=== PATIENT | female | born 1990 | race African-American/Black ===

== ENCOUNTER → 2019-06-07 | Outpatient (CLI) | payer MEDICARE, MEDICAID ==
--- NOTE | 2019-06-07 09:47 | EKG REPORT ---
SEVERITY:- OTHERWISE NORMAL ECG - SINUS ARRHYTHMIA, RATE 52-78 : Confirmed by: Galdino Carmichael 07-Jun-2019 09:46:35
[2019-06-07 09:51] LABS: ABSOLUTE LYMPHOCYTES (AUTO) 1.2 10^3/uL (0.5-4.7); ABSOLUTE MONOCYTES (AUTO) 0.6 10^3/uL (0.1-1.4); ABSOLUTE NEUT (AUTO) 8.6 10^3/uL (1.7-8.2); BASOPHILS % (AUTO) 0.3 % (0-2); HEMATOCRIT 31.4 % (36.0-47.0); HEMOGLOBIN 10.3 g/dL (12.0-15.5); LYMPHOCYTES % (AUTO) 11.7 % (13-45); MEAN CORPUSCULAR HEMOGLOBIN 24.9 pg (27.0-33.4); MEAN CORPUSCULAR HGB CONC 32.9 g/dL (32.0-36.0); MEAN CORPUSCULAR VOLUME 76 fl (80-97); PLATELET COUNT 376 10^3/uL (150-450); RED BLOOD COUNT 4.15 10^6/uL (3.72-5.28); RED CELL DISTRIBUTION WIDTH 15.3 % (11.5-14.0); TOTAL CELLS COUNTED % (AUTO) 100 %; WHITE BLOOD COUNT 10.4 10^3/uL (4.0-10.5)
[2019-06-07 10:18] LABS: ALBUMIN 4.6 g/dL (3.5-5.0); ALKALINE PHOSPHATASE 75 U/L (38-126); ANION GAP 13 (5-19); ASPARTATE AMINO TRANSFERASE 18 U/L (14-36); BILIRUBIN,TOTAL 0.3 mg/dL (0.2-1.3); BLOOD UREA NITROGEN 12 mg/dL (7-20); CARBON DIOXIDE 22 mmol/L (22-30); CHLORIDE 102 mmol/L (98-107); GLUCOSE 112 mg/dL (75-110); POTASSIUM 4.4 mmol/L (3.6-5.0); TOTAL PROTEIN 7.8 g/dL (6.3-8.2)
--- NOTE | 2019-06-07 12:11 | RADIOLOGY REPORT (SQ) ---
EXAM DESCRIPTION: CHEST SINGLE VIEW COMPLETED DATE/TIME: 06/07/2019 9:33 am REASON FOR STUDY: MORBID (SEVERE) OBESITY DUE TO EXCESS CALORIES COMPARISON: None. EXAM PARAMETERS: NUMBER OF VIEWS: One view. TECHNIQUE: Single frontal radiographic view of the chest acquired. RADIATION DOSE: NA LIMITATIONS: None. FINDINGS: LUNGS AND PLEURA: No opacities, masses or pneumothorax. No pleural effusion. MEDIASTINUM AND HILAR STRUCTURES: No masses. Contour normal. HEART AND VASCULAR STRUCTURES: Heart normal in size. Normal vasculature. BONES: No acute findings. HARDWARE: None in the chest. OTHER: No other significant finding. IMPRESSION: NO ACUTE RADIOGRAPHIC FINDING IN THE CHEST. TECHNICAL DOCUMENTATION: JOB ID: [id number] [employer]- All Rights Reserved Reading location - IP/workstation name: [email or web address]
== END ==
LOC: OD 08:47
PROVIDERS: ATTEND Surgery
DX: Z01.812 Encounter for preprocedural laboratory examination (principal); I10 Essential (primary) hypertension; E11.9 Type 2 diabetes mellitus without complications; E66.01 Morbid (severe) obesity due to excess calories
CPT/HCPCS: 36415; 71045; 80053; 84443; 85025; 93005; 93010

== ENCOUNTER 2019-07-26 23:49 | Emergency (ER) | payer MEDICARE, MEDICAID ==
--- NOTE | 2019-07-27 00:23 | ER Document Report ---
ED Medical Screen (RME) - General Stated Complaint: FOOT SWOLLEN Time Seen by Provider: 07/27/19 00:17 Primary Care Provider: KEV MESA [Primary Care Provider] - Follow up as needed Mode of Arrival: Wheelchair Information source: Patient Notes: 29-year-old female with history of epilepsy and recent gastric sleeve procedure done 2 weeks ago presents with her left foot swollen and red. Denies injury. Reports she noticed it was swelling earlier today around 1400. She reports she elevated went about her day put the boot on when she got home tonight the foot was more swollen. She took a shower and it was was swollen and red. Denies history of blood clots. Her left foot is swollen, pedal pulse +3 cap refill less than 2 seconds no erythema or warmth appreciated. I have greeted and performed a rapid initial assessment of this patient. A comprehensive ED assessment and evaluation of the patient, analysis of test results and completion of the medical decision making process will be conducted by additional ED providers. TRAVEL OUTSIDE OF THE [place] IN LAST 30 DAYS: No - Related Data Allergies/Adverse Reactions: No Known Allergies Allergy (Verified 12/16/14 01:22) Past Medical History Neurological Medical History: Reports: Hx Seizures - Immunizations Immunizations up to date: Yes Hx Diphtheria, Pertussis, Tetanus Vaccination: Yes Physical Exam - Vital signs Vitals: Temp Pulse Resp BP Pulse Ox 98.5 F 80 20 148/94 H 97 07/27/19 00:03 07/27/19 00:03 07/27/19 00:03 07/27/19 00:03 07/27/19 00:03 Course - Vital Signs Vital signs: Temp Pulse Resp BP Pulse Ox 98.5 F 80 20 148/94 H 97 07/27/19 00:03 07/27/19 00:03 07/27/19 00:03 07/27/19 00:03 07/27/19 00:03 Doctor's Discharge - Discharge Referrals: KEV MESA [Primary Care Provider] - Follow up as needed
[2019-07-27 02:05] LABS: ABSOLUTE EOSINOPHILS # (AUTO) 0.4 10^3/uL (0.0-0.6); ABSOLUTE LYMPHOCYTES (AUTO) 2.8 10^3/uL (0.5-4.7); ABSOLUTE MONOCYTES (AUTO) 0.8 10^3/uL (0.1-1.4); ABSOLUTE NEUT (AUTO) 5.2 10^3/uL (1.7-8.2); BASOPHILS % (AUTO) 0.5 % (0-2); EOSINOPHILS % (AUTO) 4.1 % (0-6); HEMATOCRIT 31.5 % (36.0-47.0); LYMPHOCYTES % (AUTO) 30.6 % (13-45); MEAN CORPUSCULAR HEMOGLOBIN 23.3 pg (27.0-33.4); MEAN CORPUSCULAR HGB CONC 31.8 g/dL (32.0-36.0); MEAN CORPUSCULAR VOLUME 73 fl (80-97); MONOCYTES % (AUTO) 8.8 % (3-13); PLATELET COUNT 383 10^3/uL (150-450); RED CELL DISTRIBUTION WIDTH 16.5 % (11.5-14.0); TOTAL CELLS COUNTED % (AUTO) 100 %; WHITE BLOOD COUNT 9.3 10^3/uL (4.0-10.5)
--- NOTE | 2019-07-27 02:11 | RADIOLOGY REPORT (SQ) ---
CLINICAL HISTORY: swollen COMPARISON: None. TECHNIQUE: XR FOOT 3 OR MORE VIEWS 07/27/2019 12:23 AM CDT FINDINGS: There is no fracture. Joint spaces are preserved. Soft tissues are unremarkable. IMPRESSION: No acute osseous findings.
[2019-07-27 02:19] LABS: ALBUMIN 4.2 g/dL (3.5-5.0); ALKALINE PHOSPHATASE 81 U/L (38-126); ANION GAP 9 (5-19); ASPARTATE AMINO TRANSFERASE 23 U/L (14-36); BILIRUBIN,TOTAL 0.3 mg/dL (0.2-1.3); BLOOD UREA NITROGEN 11 mg/dL (7-20); CALCIUM 9.1 mg/dL (8.4-10.2); CARBON DIOXIDE 27 mmol/L (22-30); CHLORIDE 100 mmol/L (98-107); GLUCOSE 82 mg/dL (75-110); POTASSIUM 4.2 mmol/L (3.6-5.0); TOTAL PROTEIN 7.3 g/dL (6.3-8.2)
--- NOTE | 2019-07-27 04:20 | ER Document Report ---
HPI - HPI Time Seen by Provider: 07/27/19 00:17 Pain Level: Denies Notes: Patient is a 29-year-old female who recently had a gastric sleeve put in a couple weeks ago presents complaining of plantar foot pain and some swelling to the foot that began today. Patient states that since she has been here the swelling has completely resolved. She has not noticed any significant redness or warmth. She does not recall any injury to the area. Patient states that it does hurt when she steps or pushes on the bottom of her foot. Patient states that she does not have any posterior leg pain or swelling above her ankle at all. Denies drug allergies. Patient is wearing flip-flops. Denies any headache, fever, neck pain, URI, sore throat, chest pain, palpitations, syncope, cough, shortness of breath, wheeze, dyspnea, abdominal pain, nausea/vomiting/diarrhea, urinary retention, dysuria, hematuria, loss of control of bowel or bladder, numbness/tingling, saddle anesthesia, muscle paralysis/weakness, or rash. - ROS Systems Reviewed and Negative: Yes All other systems reviewed and negative - CONSTITUTIONAL Constitutional: DENIES: Fever, Chills - REPRODUCTIVE Reproductive: DENIES: : - DERM Skin Color: Normal Past Medical History - General Information source: Patient - Social History Smoking Status: Never Smoker Family History: None, Reviewed & Not Pertinent Patient has suicidal ideation: No Patient has homicidal ideation: No - Past Medical History Cardiac Medical History: Reports: Hx Hypertension Neurological Medical History: Reports: Hx Seizures - epilepsy Past Surgical History: Reports: Hx Abdominal Surgery - abd sleeve 2020 - Immunizations Immunizations up to date: Yes Hx Diphtheria, Pertussis, Tetanus Vaccination: Yes Vertical Provider Document - CONSTITUTIONAL Agree With Documented VS: Yes Notes: PHYSICAL EXAMINATION: GENERAL: Well-appearing, well-nourished and in no acute distress. LUNGS: Breath sounds clear to auscultation bilaterally and equal. No wheezes rales or rhonchi. HEART: Regular rate and rhythm without murmurs, rubs, gallops. Musculoskeletal: Lt foot/ankle: No ecchymosis, swelling, erythema, warmth, or deformity. FROM to passive/active. Strength 5+/5. N/V intact distal. + tenderness to the plantar foot and is also exacerbated with extension of her toes. No bony tenderness of the foot/ankle. Achilles intact. Lis Franc maneuver neg. Anterior drawer neg. Extremities: No cyanosis, clubbing, or edema b/l. Peripheral pulses 2+. Capillary refill less than 3 seconds. NEUROLOGICAL: Normal speech, normal gait. Normal sensory, motor exams PSYCH: Normal mood, normal affect. SKIN: Warm, Dry, normal turgor, no rashes or lesions noted. - INFECTION CONTROL TRAVEL OUTSIDE OF THE [place] IN LAST 30 DAYS: No Course - Re-evaluation Re-evalutation: 07/27/19 04:18 Patient is an afebrile, well-hydrated, 29-year-old female who presents to the ED with left plantar foot pain which I suspect to be plantar fasciitis. Vitals are acceptable without any significant tachycardia, tachypnea, or hypoxia. PE is otherwise unremarkable for any neurovascular compromise, obvious tendon/ligament rupture, obvious fracture/dislocation, septic joint. X-ray was unremarkable for any acute pathology. Patient is nontoxic-appearing. Patient is able to ambulate and weight-bear. No other labs or imaging warranted at this time based on H&P. Low suspicion for any systemic or emergent condition at this time including cellulitis and DVT in addition to above. Conservative measures otherwise for symptoms. Recheck with your PCM in 3-5 days. Consider consult with podiatry. Return to the ED with any worsening/concerning symptoms otherw ise as reviewed in discharge. Patient is in agreement. - Vital Signs Vital signs: Temp Pulse Resp BP Pulse Ox 98.7 F 61 16 136/91 H 99 07/27/19 04:10 07/27/19 04:10 07/27/19 04:10 07/27/19 04:10 07/27/19 04:10 - Laboratory Result Diagrams: 07/27/19 01:40 07/27/19 01:40 Laboratory results interpreted by me: 07/27/19 07/27/19 01:40 01:40 Hgb 10.0 L Hct 31.5 L MCV 73 L MCH 23.3 L MCHC 31.8 L RDW 16.5 H Sodium 135.7 L Discharge - Discharge Clinical Impression: Left foot pain Condition: Stable Disposition: HOME, SELF-CARE Instructions: Plantar Fasciitis or Heel Spur ([facility]) Additional Instructions: Rest, Ice, Compression, Elevation Tylenol/ibuprofen as needed Light stretches daily Strength exercises as able Moist heat and massage may help F/u with your PCP in 3-5 days for a recheck Consider consult(s) with podiatry for ongoing/worsening symptoms Return to the ED with any worsening symptoms and/or development of fever, headache, chest pain, palpitations, syncope, shortness of breath, trouble breathing, abdominal pain, n/v/d, muscle weakness/paralysis, numbness/tingling, swelling, redness, or other worsening symptoms that are concerning to you. Prescriptions: Ibuprofen [Motrin 800 mg Tablet] 800 mg PO Q8H PRN #15 tab PRN Reason: Forms: Elevated Blood Pressure, Return to Work Referrals: KEV MESA [Primary Care Provider] - Follow up as needed CHANTELL AMOR DPM [ACTIVE STAFF] - Follow up as needed
[2019-07-27 05:12] VITALS: BP 140/80
== END 2019-07-27 05:14 | disposition home or self-care (01) ==
LOC: ER 23:49
DX: M79.672 Pain in left foot (principal); M79.89 Other specified soft tissue disorders; I10 Essential (primary) hypertension
CPT/HCPCS: 36415; 80053; 85025; 99283

== ENCOUNTER 2019-12-18 15:05 | Emergency (ER) | payer MEDICARE, MEDICAID ==
[2019-12-18 17:26] LABS: ABSOLUTE LYMPHOCYTES (AUTO) 1.2 10^3/uL (0.5-4.7); ABSOLUTE MONOCYTES (AUTO) 0.6 10^3/uL (0.1-1.4); ABSOLUTE NEUT (AUTO) 5.7 10^3/uL (1.7-8.2); BASOPHILS % (AUTO) 0.5 % (0-2); EOSINOPHILS % (AUTO) 0.3 % (0-6); HEMOGLOBIN 11.2 g/dL (12.0-15.5); MEAN CORPUSCULAR HEMOGLOBIN 25.4 pg (27.0-33.4); MEAN CORPUSCULAR HGB CONC 32.1 g/dL (32.0-36.0); MEAN CORPUSCULAR VOLUME 79 fl (80-97); MONOCYTES % (AUTO) 7.6 % (3-13); PLATELET COUNT 322 10^3/uL (150-450); RED BLOOD COUNT 4.41 10^6/uL (3.72-5.28); RED CELL DISTRIBUTION WIDTH 22.3 % (11.5-14.0); SEGMENTED NEUTROPHILS % (AUTO) 75.6 % (42-78); TOTAL CELLS COUNTED % (AUTO) 100 %; WHITE BLOOD COUNT 7.6 10^3/uL (4.0-10.5)
[2019-12-18] MEDS ORDERED: RINGERS SOLUTION,LACTATED 1,000 ML IV ONE (17:40)
[2019-12-18] MEDS ORDERED: ONDANSETRON HCL INJ/PF 4 MG/2 ML SDV IV ONE (17:40)
[2019-12-18] MEDS ORDERED: NORMAL SALINE 1000 ML 1,000 ML IV ONE (17:40)
[2019-12-18] MEDS ORDERED: MORPHINE SULFATE 10 MG/ML INJ IV ONE ×2 (17:40→20:21)
[2019-12-18 17:42] LABS: ALBUMIN 4.8 g/dL (3.5-5.0); ALKALINE PHOSPHATASE 88 U/L (38-126); ANION GAP 8 (5-19); ASPARTATE AMINO TRANSFERASE 27 U/L (14-36); BILIRUBIN,TOTAL 0.4 mg/dL (0.2-1.3); BLOOD UREA NITROGEN 9 mg/dL (7-20); CALCIUM 9.8 mg/dL (8.4-10.2); CARBON DIOXIDE 27 mmol/L (22-30); CHLORIDE 98 mmol/L (98-107); GLUCOSE 100 mg/dL (75-110); POTASSIUM 4.2 mmol/L (3.6-5.0); TOTAL PROTEIN 7.9 g/dL (6.3-8.2)
[2019-12-18 18:15] LABS: AMORPHOUS SEDIMENT,URINE TRACE /HPF; APPEARANCE,URINE CLOUDY; BILIRUBIN,URINE NEGATIVE (NEGATIVE); COLOR,URINE YELLOW; GLUCOSE, URINE NEGATIVE (NEGATIVE); KETONES,URINE TRACE mg/dL (NEGATIVE); LEUKOCYTE ESTERASE,URINE TRACE (NEGATIVE); NITRITE,URINE NEGATIVE (NEGATIVE); PROTEIN,URINE 30 mg/dL (NEGATIVE); URINE SPECIFIC GRAVITY 1.016; UROBILINOGEN,URINE NEGATIVE mg/dL (<2.0)
--- NOTE | 2019-12-18 19:30 | ER Document Report ---
ED GI/ - General Chief Complaint: Flank Pain Stated Complaint: RIGHT FLANK PAIN Time Seen by Provider: 12/18/19 17:10 Primary Care Provider: [facility] [Provider Group] - Follow up in 3-5 days (Call for an outpatient follow-up appointment.) JOE BAPTISTE PA-C [Primary Care Provider] - Follow up as needed ROXIE LOYA MD [ACTIVE PROVISIONAL STAFF] - Follow up as needed Mode of Arrival: Ambulatory Information source: Patient Notes: 29-year-old female past medical history significant for epilepsy, hypertension, hyperlipidemia, HSV-2 presents to the emergency room complaining of right flank pain that radiates to her right upper quadrant that started earlier today. Complains of nausea with vomiting. Some constipation which she states is chr onic. Last bowel movement was Thursday states she tried taking milk of mag and MiraLAX without relief of symptoms. Denies fevers. Denies any urinary symptoms. No history of kidney stones. TRAVEL OUTSIDE OF THE [place] IN LAST 30 DAYS: No - Related Data Allergies/Adverse Reactions: No Known Allergies Allergy (Verified 12/16/14 01:22) Past Medical History - General Information source: Patient - Social History Smoking Status: Never Smoker Chew tobacco use (# tins/day): No Frequency of alcohol use: Occasional Drug Abuse: None Family History: None, Reviewed & Not Pertinent - Past Medical History Cardiac Medical History: Reports: Hx Hypertension Neurological Medical History: Reports: Hx Seizures - epilepsy Past Surgical History: Reports: Hx Abdominal Surgery - abd sleeve 2020 - Immunizations Immunizations up to date: Yes Hx Diphtheria, Pertussis, Tetanus Vaccination: Yes Review of Systems - Review of Systems Constitutional: No symptoms reported Cardiovascular: No symptoms reported Respiratory: No symptoms reported Gastrointestinal: Abdominal pain, Nausea, Vomiting, Constipation Genitourinary: Flank pain Musculoskeletal: No symptoms reported Skin: No symptoms reported Neurological/Psychological: No symptoms reported -: Yes All other systems reviewed and negative Physical Exam - Vital signs Vitals: Temp Pulse Resp BP Pulse Ox 99.2 F 76 18 140/89 H 100 12/18/19 15:11 12/18/19 15:11 12/18/19 15:11 12/18/19 15:11 12/18/19 15:11 - General General appearance: Alert In distress: Moderate - HEENT Head: Normocephalic, Atraumatic Eyes: Normal Pupils: PERRL - Respiratory Respiratory status: No respiratory distress Chest status: Nontender Breath sounds: Normal Chest palpation: Normal - Cardiovascular Rhythm: Regular Heart sounds: Normal auscultation Murmur: No - Abdominal Inspection: Normal Distension: No distension Bowel sounds: Normal Tenderness: Tender - Generalized tenderness on palpation to the abdomen, no guarding, no rebound, no McBurney's, no Davis's. No: McBurney's point, Davis's sign, Guarding, Rebound Organomegaly: No organomegaly - Back Back: Normal, CVA tenderness - Positive for right-sided CVA tenderness - Neurological Neuro grossly intact: Yes Cognition: Normal Orientation: AAOx4 Empire Coma Scale Eye Opening: Spontaneous Theodore Coma Scale Verbal: Oriented Empire Coma Scale Motor: Obeys Commands Theodore Coma Scale Total: 15 Speech: Normal Motor strength normal: LUE, RUE, LLE, RLE Sensory: Normal - Skin Skin Temperature: Warm Skin Moisture: Dry Skin Color: Normal Course - Re-evaluation Re-evalutation: 12/18/19 19:21 Patient with sudden onset of right flank to right upper quadrant pain low-grade fever noted. Nausea, vomiting, constipation. Labs, CT abdomen pelvis with IV contrast. Antiemetics, IV fluids, pain medication and reevaluate. 12/18/19 20:21 Patient with persistent pain. Reviewed CAT scan and lab results with patient. Aware of need for cath urine secondary to contamination. Patient is agreeable to have a cath urine. Will re-medicate and reevaluate after cath urine results. 12/18/19 21:11 Patient is resting comfortably reviewed cath urine with patient. Counseled on need to follow-up outpatient with urologist as discussed. Also need to follow- up with a executive associate. She was provided with the name of urologist as well as a executive associate. Push fluids. Pain medication as prescribed. Zofran as prescribed. Patient was given strict return to the emergency room guidelines. Return for any new or worsening symptoms. All questions were answered. Patient verbalized understanding and agrees with plan of care. This was staffed with ED attending Dr. Saldivar reviewed all lab and CAT scan results, Dr. Saldivar agrees with the plan of care. 12/18/19 21:16 12/18/19 23:17 - Vital Signs Vital signs: Temp Pulse Resp BP Pulse Ox 98.1 F 65 16 139/90 H 100 12/18/19 21:45 12/18/19 21:45 12/18/19 21:45 12/18/19 21:45 12/18/19 21:45 - Laboratory Result Diagrams: 12/18/19 16:30 12/18/19 16:30 Laboratory results interpreted by me: 12/18/19 12/18/19 12/18/19 16:30 16:30 17:20 Hgb 11.2 L Hct 35.0 L MCV 79 L MCH 25.4 L RDW 22.3 H Sodium 132.6 L Urine Protein 30 H Urine Ketones TRACE H Urine Blood LARGE H Ur Leukocyte Esterase TRACE H Urine Ascorbic Acid 20 H 12/18/19 20:30 Hgb Hct MCV MCH RDW Sodium Urine Protein Urine Ketones TRACE H Urine Blood LARGE H Ur Leukocyte Esterase Urine Ascorbic Acid - Diagnostic Test Radiology reviewed: Reports reviewed Discharge - Discharge Clinical Impression: Obstructive uropathy, Hydroureteronephrosis, Right kidney stone, Fatty liver Uterine fibroid Qualifiers: Uterine leiomyoma location: unspecified location Qualified Code(s): D25.9 - Leiomyoma of uterus, unspecified Condition: Stable Disposition: HOME, SELF-CARE Instructions: Kidney Stone ([facility]) Additional Instructions: Push fluids. Toradol and Zofran as prescribed. Outpatient follow-up with urology as discussed. Outpatient follow-up with gynecology as discussed. Return to the emergency room for any new or worsening symptoms. Prescriptions: Ketorolac Tromethamine [Toradol 10 mg Tablet] 10 mg PO Q6HP PRN #12 tablet PRN Reason: Ondansetron [Zofran Odt 4 mg Tablet] 1 tab PO Q4H PRN #15 tab.rapdis PRN Reason: For Nausea/Vomiting Referrals: JOE BAPTISTE PA-C [Primary Care Provider] - Follow up as needed ROXIE LOYA MD [ACTIVE PROVISIONAL STAFF] - Follow up as needed [facility] [Provider [facility]] - Follow up in 3-5 days (Call for an outpatient follow-up appointment.)
--- NOTE | 2019-12-18 20:05 | RADIOLOGY REPORT (SQ) ---
EXAM DESCRIPTION: CT ABD/PELVIS WITH IV ONLY IMAGES COMPLETED DATE/TIME: 12/18/2019 7:43 pm REASON FOR STUDY: abdominal pain Right lower quadrant, right flank pain. Status post gastric sleeve in July 2019. COMPARISON: None. TECHNIQUE: CT scan of the abdomen and pelvis performed using helical scanning technique with dynamic intravenous contrast injection. No oral contrast. Images reviewed with lung, soft tissue, and bone windows. Reconstructed coronal and sagittal MPR images reviewed. Delayed images for evaluation of the urinary system also acquired. All images stored on PACS. All CT scanners at this facility use dose modulation, iterative reconstruction, and/or weight based d osing when appropriate to reduce radiation dose to as low as reasonably achievable (ALARA). [facility]: Dose Right [facility]: CareDose [facility]: Dose Right [facility]: Teradose 4D [facility]: [employer] CONTRAST TYPE AND DOSE: contrast/concentration: Isovue 350.00 mmol/ml; Total Contrast Delivered: 96. 0 ml; Total Saline Delivered: 71.0 ml RENAL FUNCTION: Creatinine 1.02 RADIATION DOSE: CT Rad equipment meets quality standard of care and radiation dose reduction techniq ues were employed. CTDIvol: 11.2 - 15.9 mGy. DLP: 1457 mGy-cm.. LIMITATIONS: None. FINDINGS: LOWER CHEST: No consolidation or pleural effusion. LIVER: Diffuse decreased attenuation, most consistent with fatty infiltration. No dilated ducts. SPLEEN: Normal size. PANCREAS: No significant calcifications. No adjacent inflammation or peripancreatic fluid collections . Pancreatic duct not dilated. GALLBLADDER: Surgically absent. ADRENAL GLANDS: No significant masses or asymmetry. RIGHT KIDNEY AND URETER: There is right-sided perinephric stranding. There is moderate right hydrone phrosis and hydroureter. There is persistent right renal enhancement with delayed excretion of the i ntravenous contrast on the delayed phase of imaging. There is peripheral enhancement of the right re nal pelvis. LEFT KIDNEY AND URETER: No significant calcifications. No hydronephrosis or hydroureter. AORTA AND VESSELS: No abdominal aortic aneurysm or evidence for acute dissection . RETROPERITONEUM: No retroperitoneal adenopathy, hemorrhage or masses. BOWEL AND PERITONEAL CAVITY: Postsurgical changes are noted at the stomach. No dilated bowel loops t o suggest obstruction. No free air. APPENDIX: Normal. PELVIS: The uterus is enlarged with a lobulated contour. The urinary bladder is partially distended. There is a 3 mm calcification in the region of the right UVJ. There is trace amount of free pelvic fluid. ABDOMINAL WALL: There is diffuse soft tissue edema. There is a small fat containing umbilical hernia . BONES: No significant or acute findings. IMPRESSION: 1. Right-sided obstructive uropathy with moderate hydroureteronephrosis and delayed con trast excretion, concerning for decreased renal function. 3 mm calcification in the region of the rig ht UVJ, may represent an obstructing ureteral calculus. 2. Right-sided perinephric stranding with peripheral enhancement of the right renal pelvis, may be se condary to the above findings versus superimposed acute infection/inflammation such as pyelonephritis . Please correlate with laboratory values/urinalysis. 3. Fatty infiltration of the liver. 4. Enlarged uterus with a lobulated contour, suggestive of fibroids. Pelvic ultrasound can help in f urther evaluation. 5. Small amount of free fluid at the pelvis. 6. Diffuse soft tissue edema. TECHNICAL DOCUMENTATION: JOB ID: [id number] Quality ID # [id number]: Final reports with documentation of one or more dose reduction techniques (e.g., Au tomated exposure control, adjustment of the mA and/or kV according to patient size, use of iterative reconstruction technique) 2010 [employer]- All Rights Reserved Reading location - IP/workstation name: [email or web address]
[2019-12-18 20:58] LABS: APPEARANCE,URINE CLEAR; BILIRUBIN,URINE NEGATIVE (NEGATIVE); COLOR,URINE STRAW; GLUCOSE, URINE NEGATIVE (NEGATIVE); KETONES,URINE TRACE mg/dL (NEGATIVE); LEUKOCYTE ESTERASE,URINE NEGATIVE (NEGATIVE); NITRITE,URINE NEGATIVE (NEGATIVE); PROTEIN,URINE NEGATIVE (NEGATIVE); URINE SPECIFIC GRAVITY 1.019; UROBILINOGEN,URINE NEGATIVE mg/dL (<2.0)
[2019-12-18 21:46] VITALS: BP 139/90
== END 2019-12-18 21:45 | disposition home or self-care (01) ==
LOC: ER 15:05
DX: D25.9 Leiomyoma of uterus, unspecified (principal); N39.9 Disorder of urinary system, unspecified; N13.2 Hydronephrosis with renal and ureteral calculous obstruction; K76.0 Fatty (change of) liver, not elsewhere classified; R10.11 Right upper quadrant pain; R11.2 Nausea with vomiting, unspecified; R10.9 Unspecified abdominal pain; K59.00 Constipation, unspecified; G40.909 Epilepsy, unspecified, not intractable, without status epilepticus; I10 Essential (primary) hypertension; E78.5 Hyperlipidemia, unspecified
CPT/HCPCS: 96376; 99284; 96361; 96374; 96375; 36415; 83690; 84703; 85025; 80053; 81001; 74177; J2270; J2405; J7030; J7120